=== PATIENT | male | born 2000 | race Caucasian/White ===

== ENCOUNTER 2020-09-29 12:35 | Emergency (ER) | payer OTHER, SELFPAY ==
[2020-09-29 12:42] VITALS: BP 112/54; PULSE 93; RESP 20; TEMP 37.3; O2SAT 99
--- NOTE | 2020-09-29 12:43 | ED.FEVER ---
HPI - Fever General Chief Complaint: Fever Stated Complaint: 11 day fever Time Seen by Provider: 09/29/20 12:43 Source: patient and RN notes reviewed History of Present Illness HPI Narrative: Patient is a 19-year-old male who presents the urgent care with complaints of a fever for 12 days. Patient states that he had his second Covid vaccine on 19 September and ever since then he has had low-grade fevers up to 101F range. Patient states that he takes 1 Tylenol, 500 mg, approximately every 8 hours when he notices the fever returning. Patient states he does have body aches at the time of the fevers but not consistently. Patient states he did have some loose stools last Tuesday and 2 days ago which is since subsided. Patient states he has intermittent abdominal lower cramping's but currently denies of any abdominal pains, nausea, vomiting. Patient denies of any upper respiratory symptoms. Denies of any cough or shortness of breath. Denies of any underlying health issues. Patient states that he has done a telehealth visit with his primary care doctor who had no suggestions for him. No other acute complaints. No acute distress noted. Patient aware of the plan of care. Some parts of this dictation were generated by voice recognition software and may contain typographical and/or grammatical inaccuracies. Related Data Home Medications Medication Instructions Recorded Confirmed No Home Medications 09/29/20 09/29/20 Allergies Allergy/AdvReac Type Severity Reaction Status Date / Time No Known Allergies Allergy Verified 09/29/20 12:48 Review of Systems Review of Systems: Narrative: CONSTITUTIONAL: Reports of on and off 12-day fever EYES: Denies visual changes, redness, or discharge. ENT: Denies rhinorrhea, congestion, sore throat, or otalgia. CARDIOVASCULAR: Denies chest pain, palpitations, or edema. RESPIRATORY: Denies cough or dyspnea. GASTROINTESTINAL: Denies abdominal pain, nausea, vomiting, or diarrhea. GENITOURINARY: Denies dysuria or hematuria. SKIN: Denies rash or itching. MUSCULOSKELETAL: Denies back pain, joint pain, or myalgia. NEUROLOGIC: Denies headache, numbness, or weakness. All other systems reviewed are negative, except as documented in HPI. PMFSH Comments At the time of my signature, I reviewed and agree with the nursing past medical, surgical, social, and family history. There is no relevant family history pertinent to the patient complaint. Exam Narrative: Exam Narrative: GENERAL: This is a well-nourished, well-developed patient, in no apparent distress. HEAD: normocephalic, atraumatic. EYES: PERRL. Sclera clear/white. Vision is grossly intact. EARS: External ears normal, auditory canals clear and without drainage, unable to visualize bilateral TMs due to cerumen impaction. Hearing grossly intact. NOSE: External nose normal with no obvious nasal discharge, nares without redness, no rhinorrhea. THROAT: Mucous membranes moist, posterior pharynx clear. NECK: Neck supple, non-tender without lymphadenopathy CARDIOVASCULAR: Regular rate and rhythm without murmurs, gallops, or rubs. RESPIRATORY: Clear to auscultation. Breath sounds equal bilaterally. No wheezes, rales, or rhonchi. GASTROINTESTINAL: Abdomen soft, mild diffuse lower tenderness, nondistended. Bowel sounds are active. No hepato-splenomegaly, or palpable masses. No guarding. SKIN: warm, intact with no suspicious lesions or rash, good texture and turgor. NEURO: awake, alert, and oriented to person, place and time. There were no obvious focal neurologic abnormalities. EXTREMITIES: No clubbing, cyanosis, or edema. Course Vital Signs Vital signs: Vital Signs Temperature 99.1 F 09/29/20 12:42 Pulse Rate 93 09/29/20 12:42 Respiratory Rate 20 09/29/20 12:42 Blood Pressure 112/54 L 09/29/20 12:42 Pulse Oximetry 99 09/29/20 12:42 Temperature 99.1 F 09/29/20 12:42 Pulse Rate 93 09/29/20 12:42 Respiratory Rate 20 09/29/20 12:42
== END 2020-09-29 13:05 | disposition home or self-care (01) ==
PROVIDERS: Emergency Provider Nurse Practitioner Family; PCP Physician Assistant
DX: R50.9 Fever, unspecified (principal)
CPT/HCPCS: 99202; G0463

== ENCOUNTER 2024-08-30 09:07 | Emergency (ER) | payer BC, SELFPAY ==
--- NOTE | 2024-08-30 09:09 | ED.EAR ---
HPI - Ear Problem General Chief complaint: Ear Stated complaint: Left Ear Problem Time Seen by Provider: 08/30/24 09:17 Source: patient, RN notes reviewed and old records reviewed Mode of arrival: ambulatory Limitations: no limitations History of Present Illness HPI Narrative: [age] year male presents to the [facility] with left ear decreased hearing. States that symptoms started at 5:30 a.m. last night. Patient does use Q-tips. Denies any pain. Denies any sinus congestion, fevers Location: left ear Treatment prior to arrival: other (Q-tips) Related Data Allergies Allergy/AdvReac Type Severity Reaction Status Date / Time No Known Allergies Allergy Verified 04/04/24 14:27 Review of Systems Review of Systems: All systems reviewed & are unremarkable except as noted in HPI and below Constitutional: Constitutional: Reports no additional constitutional complaints ENT: Reports as per HPI and Reports hearing loss (Decreased hearing, left ear) Cardiovascular: Cardiovascular: Reports no additional cardiovascular complaints, Denies chest pain and Denies dyspnea Respiratory: Respiratory: Reports no additional respiratory complaints, Denies chest congestion, Denies cough and Denies dyspnea Musculoskeletal: Musculoskeletal: Reports no additional musculoskeletal complaints Integumentary/Breasts: Skin/Breast: Reports system reviewed and no additional complaints, except as docu PMFSH Social History Social History Smoking status: Former smoker Smoking end date: 12/29/23 Comments At the time of my signature, I reviewed and agree with the nursing past medical, surgical, social, and family history. There is no relevant family history pertinent to the patient complaint. Exam Const: General: cooperative, healthy appearing, comfortable, no acute distress, well developed, alert and well nourished Nutritional Appearance: well nourished Orientation/consciousness: patient oriented x3 Limitations: no limitations HENMT: Head: normal to inspection Ears: hearing grossly normal bilaterally, external ears normal, mastoids normal, no periauricular adenopathy and Abnormal EAC present cerumen impaction bilateral Face/Nose/Sinus: Normal external nose present Face and sinus: normal facial exam and face symmetric Eyes: General: appearance normal, both eyes and all related structures Alignment and Position: alignment normal Neck: Neck: normal visual inspection, full ROM, no lymphadenopathy and no meningeal signs Chest: Chest palpation & inspection: normal inspection of the chest Resp: Effort & Inspection: normal respiratory effort and able to speak in complete sentences Cardio: Rate: regular rate Skin: General skin exam: normal color and no rashes or lesions noted Neuro: General: patient oriented x3, gait normal, moves all extremities and no meningeal signs Cognition (Neuro): normal cognition Speech: normal speech Gait exam (Neuro): Normal gait present Extrem: General: normal to inspection, full ROM, capillary refill normal and normal gait Psych: Appearance: grossly normal and well kempt Mental Status: mental status grossly normal Speech and movement: Normal speech and movement present and Clear speech present Affect: normal affect Attitude: cooperative Course Course Emergency Course: Patient with bilateral cerumen impactions however only wanted left ear cleaned. Wants to go home and take care of the right ear. Level of Care: Express Care Visit Vital Signs Vital signs: Vital Signs Temperature 98.2 F 08/30/24 09:16 Pulse Rate 71 08/30/24 09:16 Respiratory Rate 16 08/30/24 09:16 Blood Pressure 119/66 08/30/24 09:16 Pulse Oximetry 99 08/30/24 09:16 Oxygen Delivery Room Air 08/30/24 09:16 Temperature 98.2 F 08/30/24 09:16 Pulse Rate 71 08/30/24 09:16 Respiratory Rate 16 08/30/24 09:16 Blood Pressure 119/66 08/30/24 09:16 Pulse Oximetry 99 08/30/24 09:16 Oxygen Delivery Room Air 08/30/24 09:16 Reviewed Procedures Ear Wax Removal Left Ear: Ear Wax Removal Date: 08/30/24 Ear Wax Removal Time: 09:25 Cerumenolytic Used: other (Peroxide water) Results: Re-examined: cerumen removed completely TM Examination: TM(s) intact, normal appearance Ear Canal Exam: other (Increased pink without swelling) Patient Tolerated Procedure: well Complications: no problems Technique: ear canal irrigated Medical Decision Making MDM Narrative Medical decision making narrative: Patient sitting comfortably in exam room. Nontoxic, vitals stable. Patient in no acute distress Patient presents for decreased hearing of the left ear, denies pain. Bilateral cerumen impaction noted, patient is declining cleaning of the right ear, irrigation with peroxide water, successful removal of cerumen to the left ear, TM within defined limits mild discoloration noted to canal where cerumen was intact. Prescribing ear drops to prevent infection and reduce inflammation Patient appropriate for outpatient treatment with close follow-up Discharge instructions reviewed with patient, as well as provided in writing per nursing staff. The instructions also include specific and strict return/GO TO THE ER as well as f/u information. All questions have been answered, and the patient deny any further questions with discharge and discharge plan. Some parts of this dictation were generated by voice recognition software and may contain typographical and/or grammatical inaccuracies. Differential Diagnosis Differential Diagnosis: Otitis media, otitis externa, serous otitis Medical Records Medical records reviewed: Yes I reviewed the external patient's medical records. Vital Signs Vital Signs: Vital Signs Temperature 98.2 F 08/30/24 09:16 Pulse Rate 71 08/30/24 09:16 Respiratory Rate 16 08/30/24 09:16 Blood Pressure 119/66 08/30/24 09:16 Pulse Oximetry 99 08/30/24 09:16 Oxygen Delivery Room Air 08/30/24 09:16 Temperature 98.2 F 08/30/24 09:16 Pulse Rate 71 08/30/24 09:16 Respiratory Rate 16 08/30/24 09:16 Blood Pressure 119/66 08/30/24 09:16 Pulse Oximetry 99 08/30/24 09:16 Oxygen Delivery Room Air 08/30/24 09:16 Reviewed Lab Data Lab results reviewed: Yes I reviewed the patient's lab results. Labs: Reviewed Critical Care Time Critical Care Time Critical Care Time: No Discharge Plan Discharge Clinical Impression: Bilateral impacted cerumen Patient Disposition: Home, Self-Care Condition: Stable Instructions: Antibiotic Form, Carbamide Peroxide (Into the ear) Additional Instructions: You had Cerumen (EAR wax impaction). Do not use Q-tips or put anything in the ear. This can damage the ear. Instead , use Debrox or ear wax remover. Place 5 drops in ear after a hot shower and place a warm compress over the ear for 20 minutes. alternate doing this every 3-4 days. It will break up the wax gently. Do not use too much pressure. Once you have all of the cerumen out of your ears, you may do preventative treatment to prevent this from happening again. Use 5 drops once weekly after a hot shower. Patient Language: Slovenian Prescriptions: New bcmfrdwm-vleiqgonj-CU 3.5-10,000-1 mg/mL-unit/mL-% drops,suspension 4 drp LEFT EAR TID 7 Days Qty: 10 0RF No Action azithromycin 250 mg tablet 250 mg PO DAILY Qty: 6 0RF Rx Instructions: take 500 mg today (day 1), then 250 mg daily on days 2-5. amoxicillin-pot clavulanate 875-125 mg tablet 1 tablet PO Q12H 5 Days Qty: 10 0RF Follow-up/Referrals: UNKNOWN,DOCTOR [Primary Care Provider] - Stand Alone Forms: Work/School Release IP Time of Disposition: 09:33
[2024-08-30 09:16] VITALS: BP 119/66; PULSE 71; RESP 16; TEMP 36.8; O2SAT 99
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
--- OUTSIDE RECORDS SUMMARY | 2024-08-30 09:19 | XMS_ITS | Clinical Summary ---
Author Organization [facility] Address [address] [place] [address] Phone Care Team Providers Care Commercial Subcontractor Name Role Phone Rehan Guo MD Primary Care Provider [phone] Allergies No known active allergies Medications No known medications Social History Tobacco Use Types Packs/Day Years Used Date Smoking Tobacco: Never Alcohol Use Standard Drinks/Week Comments No 0 (1 standard drink = 0.6 oz pur e alcohol) Sex and Gender Information Value Date Recorded Sex Assigned at Not on file Legal Sex Male 9:56 PM CDT Gender Identity Not on file Sexual Orientation Not on file Last Filed Vital Signs Vital Sign Reading Time Taken Comments Blood Pressure 118/79 09/06/2017 6:42 PM CDT Pulse 86 09/06/2017 6:42 PM CDT Temperature 36.3 C (97.4 F) 09/06/2017 6:42 PM CDT Respiratory Rate 16 09/06/2017 6:42 PM CDT Oxygen Saturation 97% 09/06/2017 6:42 PM CDT Inhaled Oxygen Concentration - - Weight 83.9 kg (185 lb) 09/06/2017 6:42 PM CDT Height 180.3 cm (5' 11 ) 09/06/2017 6:42 PM CDT Body Mass Index 25.8 09/06/2017 6:42 PM CDT Plan of Treatment Not on file Insurance [employer] [facility] Care Teams Commercial Subcontractor Relationship Specialty Start Date End Date Rehan Guo MD [address] [place] [address] PCP - General Pediatrics 09/06/17
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
[2024-08-30] MEDS: HYDROGEN PEROXIDE 3% SOLN(*SP) 473 ML BOTTLE 120 ML IRRIGATION (10:36)
== END 2024-08-30 09:35 | disposition home or self-care (01) ==
PROVIDERS: Emergency Provider Nurse Practitioner
DX: H61.23 Impacted cerumen, bilateral (principal); Z87.891 Personal history of nicotine dependence
CPT/HCPCS: 69209; 99213; A9270; G0463